=== PATIENT | male | born 1980 | race African-American/Black ===

== ENCOUNTER 2021-07-23 22:35 | Emergency (ER) | payer OTHER ==
[~2021-07-23] VITALS: Ht 177.8 cm; Wt 80.7 kg
--- NOTE | 2021-07-24 00:46 | NUR ---
c/o lower abd pain x 3days, +n/v/d, with watery stools last tylenol at 7pm today. PT A/Ox4. Tolerating R/A well with no SOB. Pt ambulatory with steady gait
--- NOTE | 2021-07-24 01:00 | NUR ---
URINE COLLECTED AND SENT TO LAB
--- NOTE | 2021-07-24 01:05 | NUR ---
RAC #20G S/L; PATENT AND INTACT. BLOOD COLLECTED AND SENT TO LAB
[2021-07-24] MEDS ORDERED: ONDANSETRON HCL/PF 4 MG/2 ML VIAL ONE (01:18)
[2021-07-24] MEDS ORDERED: HYDROMORPHONE 1 MG/1 ML DISP.SYRIN ONE (01:19)
[2021-07-24 01:23] LABS: BASOPHILS % (AUTO) 0.1 % (0.0-2.0); HEMATOCRIT 48 % (39-51); HEMOGLOBIN 16.1 g/dL (13.5-17.5); LYMPHOCYTES % (AUTO) 10.6 % (20.0-44.0); MEAN CORPUSCULAR HGB CONC 34 g/dl (31.0-36.0); MEAN CORPUSCULAR VOLUME 85 fL (80-96); MONOCYTES # (AUTO) 0.9 K/uL (0.1-1.30); MONOCYTES % (AUTO) 9.7 % (2.0-12.0); NEUTROPHILS # (AUTO) 7.4 K/uL (1.8-8.9); NEUTROPHILS % (AUTO) 79.6 % (43.0-81.0); PLATELET COUNT (AUTO) 248 K/uL (150-450); WHITE BLOOD COUNT (AUTO) 9.3 K/uL (4.3-11.0)
[2021-07-24] MEDS ORDERED: ONDANSETRON HCL/PF 4 MG/2 ML VIAL IVP ONE (01:30)
[2021-07-24] MEDS ORDERED: IV NS 0.9% 1,000 ML BAG IV ONE (01:30)
[2021-07-24] MEDS ORDERED: HYDROMORPHONE INJ 2 MG/ML DISP.SYRIN IV ONE (01:30)
--- NOTE | 2021-07-24 01:34 | NUR ---
COVID ANTIGEN SWAB COLLECTED AND SENT TO LAB
[2021-07-24 01:53] LABS: ALBUMIN 4.2 g/dL (3.4-5.0); BILIRUBIN,DIRECT 0.2 mg/dL (0.0-0.2); BILIRUBIN,TOTAL 0.8 mg/dL (0.2-1.0); CALCIUM, SERUM 9.5 mg/dL (8.5-10.1); CREATININE 1.3 mg/dL (0.6-1.3); POTASSIUM 4.2 mmol/L (3.5-5.1)
--- NOTE | 2021-07-24 01:59 | NUR ---
PT TAKEN TO CT VIA ANGLE
[2021-07-24] MEDS ORDERED: IOHEXOL-300 100 ML VIAL IV ONE (02:02)
[2021-07-24] MEDS ORDERED: CT SWABBABLE VALVE TRANS SET 1 EA INFUS.SET MC ONE (02:03)
[2021-07-24] MEDS ORDERED: IV NS 0.9% 250 ML IV ONE (02:03)
--- NOTE | 2021-07-24 02:15 | NUR ---
PT RETURNED TO ER BED [address]
[2021-07-24] MEDS ORDERED: DICY20TA11 PO (04:47)
[2021-07-24] MEDS ORDERED: ONDA4TAB5 PO (04:47)
--- NOTE | 2021-07-24 05:29 | NUR ---
Patient discharged to home in stable condition. Written and verbal after care instructions given. Patient verbalizes understanding of instruction. IV removed. Catheter intact and site benign. Pressure and 4x4 applied to site. No bleeding noted. PT ambulatory with a steady gait
[2021-07-24 05:30] VITALS: BP 127/76
== END 2021-07-24 05:30 | disposition home or self-care (01) ==
LOC: ER 22:39
DX: R10.30 Lower abdominal pain, unspecified (principal); Z20.822 Contact with and (suspected) exposure to COVID-19; Z88.0 Allergy status to penicillin; F17.210 Nicotine dependence, cigarettes, uncomplicated; R03.0 Elevated blood-pressure reading, without diagnosis of hypertension
CPT/HCPCS: 36415; 74177; 80048; 80076; 83690; 85025; 85730; 87426; 96361; 96374; 96375; 99285; 99406; C9803; J1170; J2405; J7030; J7050; Q9967